=== PATIENT | female | born 2000 | race Caucasian/White ===

== ENCOUNTER 2020-07-31 14:01 | Emergency (ER) | payer OTHER ==
[2020-07-31] MEDS ORDERED: OMNICEF 300 MG300 MG PO (15:57)
[2020-07-31] MEDS ORDERED: TESSALON PERLE100 MG PO (15:57)
[2020-07-31] MEDS ORDERED: ZITHROMAX250 MG PO (15:57)
== END 2020-07-31 16:03 | disposition home or self-care (01) ==
LOC: ER1 14:01
DX: J18.9 Pneumonia, unspecified organism (principal); F17.200 Nicotine dependence, unspecified, uncomplicated; Z20.822 Contact with and (suspected) exposure to COVID-19
CPT/HCPCS: 0240U; 71045; 99283

== ENCOUNTER 2020-12-29 20:26 | Emergency (ER) | payer OTHER ==
[~2020-12-29 20:26] MED LIST: OMNICEF 300 MG300 MG PO; TESSALON PERLE100 MG PO; ZITHROMAX250 MG PO
[2020-12-29] MEDS ORDERED: LODINE CAP 300300 MG PO (21:07)
== END 2020-12-29 21:40 | disposition home or self-care (01) ==
LOC: ER1 20:26
DX: S93.402A Sprain of unspecified ligament of left ankle, initial encounter (principal); X50.1XXA Overexertion from prolonged static or awkward postures, initial encounter
CPT/HCPCS: 29515; 73610; 73630; 99283